=== PATIENT | female | born 1935 | race Caucasian/White ===

== ENCOUNTER 2019-03-02 12:17 | Inpatient (IN) | payer OTHER, BC ==
[~2019-03-02] VITALS: Ht 165.1 cm; Wt 79.4 kg
[2019-03-02 12:34] VITALS: Ht 165.1 cm; Wt 79.4 kg
--- NOTE | 2019-03-02 12:39 | NUR ---
PT TO ED FOR EVAL OF FALL WITH LAC AND HEMATOMA TO L SIDE OF HEAD. PT HAD UNWITNESSED FALL. PT FOUND ON GROUND BY FAMILY NO KO. PT DID NOT REMEMBER EVENTS LEADING UP TO FALL. PT CURRENTLY AWAKE ALERT AND ORIENTED. FOLLOWING ALL COMMANDS. + DRESSING IN PLACE TO HEAD. PT DENIES NECK OR BACK PAIN. STATES PAIN TO BILAT WRIST L>R. NO SWELLING OR DEFORMITY NOTED. PAIN WITH MOVEMENT. PT TO ROOM 3. CHANGED INTO GOWN. PLACED ON CM. EMT AT BEDSIDE TO CLEAN WOUND.
--- NOTE | 2019-03-02 13:07 | NUR ---
FAMILY MEMBER AT BEDSIDE.
[2019-03-02 13:17] LABS: BASOPHIL % 0.2 % (0-2); PLATELET COUNT 188 x10^3mcL (130-400); RED CELL DISTRIBUTION WIDTH 13.6 % (11.5-14.5)
--- NOTE | 2019-03-02 13:26 | NUR ---
PT WENT AND RETURNED FROM CT SCANNER. REMAINS AWAKE AND ALERT. BREATING EVEN UNLABORED. NO DISTRESS
[2019-03-02 13:36] LABS: ALBUMIN 3.5 g/dL (3.4-5.0); ALKALINE PHOSPHATASE 71 U/L (46-116); ALT/SGPT 22 U/L (14-59); AST/SGOT 13 U/L (15-37); BILIRUBIN TOTAL 0.51 mg/dL (0.20-1.00); CALCIUM 9.9 mg/dL (8.5-10.1); CARBON DIOXIDE 27.4 mmol/L (21-32); CHLORIDE SERUM 100 mmol/L (98-107); GLUCOSE SERUM 163 mg/dL (74-106); POTASSIUM SERUM 4.1 mmol/L (3.5-5.1); SODIUM SERUM 137 mmol/L (136-145); TOTAL PROTEIN, SERUM 7.3 g/dL (6.4-8.2)
--- NOTE | 2019-03-02 14:31 | NUR ---
XRAY AT BEDSIDE.
--- NOTE | 2019-03-02 15:05 | NUR ---
[facility] AT BEDSIDE FOR SUTURES WITH RYAN STAFFORD ASSISTING.
[2019-03-02 16:37] LABS: MAGNESIUM 2.1 mg/dL (1.8-2.4); PHOSPHOROUS 3.3 mg/dL (2.5-4.9)
--- NOTE | 2019-03-02 16:44 | NUR ---
REPORT GIVEN TO SID ANDRADE.
--- NOTE | 2019-03-02 16:55 | NUR ---
RECEIVED PT VIA GUERNEY FROM E/D, ACCOMPANIED BY RN AND TRANSPORTER. PT A/A/O X 4, CALM, COOPERATIVE, WEARS GLASSES (W/ PT), DENIES H/A, DIZZINESS, OR NAUSEA AT THIS TIME. PT W/ GENERALIZED WEAKNESS, ABLE TO AMBULATE W/ SLOW, UNSTEADY GAIT, NEEDS ASSISTANCE, USES WALKER AT HOME, FALL RISK PROTOCOL IN PLACE. ON TELE # 17, SR W/ BBB & ELEVATED ST SEGMENT, HR 91, DENIES CHEST PAIN OR DISCOMFORT AT THIS TIME. NO ACUTE RESPIRATORY DISTRESS NOTED. INCONTINENT OF BLADDER. CAME IN FOR UNWITNESSED FALL W/ LEFT OCCIPITAL HEMATOMA/LACERATION APPROX 0.7CM, COVERED W/ NON-ADHERENT DRESSING AND COBAND (PHOTO TO BE TAKEN LATER AFTER PT RESTS). C/O BUE INTERMITTENT ACHING PAIN 4/10, EXACERBATED BY MOVEMENT, RELIEVED BY RESTING. IV SITE LAC 18G, CDI. ORIENTED PT TO ROOM, BED CONTROLS, CALL LIGHT SYSTEM. SIDE RAILS UP X 2, BED IN LOW POSITION. WILL ENDORSE TO RAYMOND VALENCIA.
[2019-03-02 17:28] VITALS: BP 153/72
--- NOTE | 2019-03-02 17:55 | NUR ---
[employer] STORE CLERK AT BEDSIDE.
[2019-03-02] MEDS ORDERED: FARXIGA10 MG PO (18:04)
[2019-03-02] MEDS ORDERED: METFORMIN PO (18:08)
[2019-03-02] MEDS ORDERED: BASAGLAR K100 UNIT/1 SQ (18:10)
[2019-03-02] MEDS ORDERED: AMLODIPINE-VALS1 TAB PO (18:12)
[2019-03-02] MEDS ORDERED: MOBIC15 MG PO (18:13)
[2019-03-02] MEDS ORDERED: ZOLOFT100 MG PO (18:14)
[2019-03-02] MEDS ORDERED: SINGULAIR10 MG PO (18:15)
[2019-03-02] MEDS ORDERED: TRAVATAN Z5 ML OU (18:16)
[2019-03-02] MEDS ORDERED: NORCO1 TA2 PO (18:18)
--- NOTE | 2019-03-02 18:21 | NUR ---
PATIENT C/O PAIN 03/23 TO [facility], MEDICATED PATEINT WITH NORCO PER PROTOCOL(SEE EMAR). REPOSITIONED FOR COMFORT. PATIENT IS STABLE, NO ACUTE CHANGES NOTED THROUGH OUT SHIFT. CALL LIGHT WITHN REACH, BED IN LOW POSITION. WILL ENDORSE REPORT TO NIGHT RN.
[2019-03-02] MEDS ORDERED: SPIRIVA18 MC1 IH (18:28)
[2019-03-02] MEDS ORDERED: ADV250/50 IH (18:29)
[2019-03-02] MEDS ORDERED: PROVENTIL0.09 MG/A1 IH (18:31)
[2019-03-02] MEDS ORDERED: NASACORT A55 MCG/Ac1 (18:33)
[2019-03-02] MEDS ORDERED: MULTI-VITAMINS1 TAB PO (18:34)
[2019-03-02] MEDS ORDERED: EPZICOM1 TAB (18:39)
[2019-03-02] MEDS ORDERED: VITAMIN D33000 UNIT PO (18:39)
[2019-03-02] MEDS ORDERED: CRANBERRY250 MG PO (18:40)
[2019-03-02] MEDS ORDERED: FISH OIL 1,2001 EAC3 PO (18:41)
[2019-03-02] MEDS ORDERED: COQ-10100 MG PO (18:42)
[2019-03-02] MEDS ORDERED: [UNRECOGNIZED DRUG - OTHER] PO (18:46)
--- NOTE | 2019-03-02 19:20 | NUR ---
RECEIVED PT IN BED RESTING QUIETLY. SHE IS ALERT,ORIENTED X4. SHE DENIED HAVING DIZZINESS AND HEADACHE. NO FACIAL DROOP NOTED. SHE DENIES PAIN AT THIS TIME AFTER SHE WAS MEDICATED FOR PAIN BY AM NURSE. W/ LACERATION TO THE BACK OF HER HEAD W/ SUTURES NOTED. IVF NS INFUSING AT 125 CC/HR VIA LTAC. CALL LIGHT W/IN REACH.
--- NOTE | 2019-03-02 23:54 | NUR ---
PT C/O PAIN ON HER WRISTS AND SHOULDERS 03/23. NORCO 7.5/325 MG PO GIVEN. PT ALSO ASSISTED TO THE BSC AND VOIDED W/O DIFFICULTY. HELPED HER BACK TO BED AND KEPT WARM AND COMFORTABLE.
[2019-03-03 00:30] VITALS: BP 153/72
--- NOTE | 2019-03-03 02:30 | NUR ---
ASSISTED PT TO BSC. PT REMAINS ALERT AND ORIENTED X4 W/ CLEAR SPEECH. SHE DENIES FEELING DIZZY WHEN GETTING UP. HELPED HER BACK TO BED AND KEPT COMFORTABLE.
--- NOTE | 2019-03-03 05:35 | NUR ---
PT SLEPT AT [facility]. SHE REMAINS ALERT AND ORIENTED X4. SHE HAD NO EPISODE OF DIZZINESS OR LIGHTHEADEDNESS. W/ MILD GENERALIZED WEAKNESS NOTED. PT USING BEDSIDE COMMODE. SHE VOIDS W/O DIFFICULTY W/ PERIODS ON INCONTINENCE. NO BM THIS SHIFT. IVF NS INFUSING WELL AT 120 CC/HR VIA LTAC. ALL NEEDS ATTENDED TO SAFETY MEASURES MAINTAINED.
[2019-03-03 06:04] VITALS: BP 150/80
[2019-03-03 06:50] LABS: BASOPHIL % 0.4 % (0-2); PLATELET COUNT 171 x10^3mcL (130-400); RED CELL DISTRIBUTION WIDTH 13.7 % (11.5-14.5)
[2019-03-03 06:57] LABS: CARBON DIOXIDE 25.7 mmol/L (21-32); CHLORIDE SERUM 100 mmol/L (98-107); GLUCOSE SERUM 103 mg/dL (74-106); MAGNESIUM 1.9 mg/dL (1.8-2.4); PHOSPHOROUS 3.4 mg/dL (2.5-4.9); POTASSIUM SERUM 3.5 mmol/L (3.5-5.1); SODIUM SERUM 128 mmol/L (136-145)
--- NOTE | 2019-03-03 07:15 | NUR ---
RECEIVED PT. IN BED A/A/O X3. NO SOB, NO N/V NOTED. PT. DENIES ANY PAIN AT THIS TIME. PT. DENIES FEELING OF DIZZINESS. NS RUNNING AT 120 CC/HR VIA IV SITE AT L AC. SCD TO BLE MAINTAINED. BED IN LOW POS., CALL LIGHT WITHIN REACH. SIDE RAILS UP X3.
[2019-03-03 07:23] LABS: UA SPECIFIC GRAVITY <=1.005 (1.005-1.035); microscopic required? YES; urine erythrocyte NEGATIVE (NEGATIVE)
[2019-03-03 08:41] LABS: AMPHETAMINE QUAL UR NONE DETECTED (See below)
[2019-03-03 09:25] VITALS: BP 140/80
--- NOTE | 2019-03-03 13:47 | NUR ---
D/C HOME INSTRUCTIONS GIVEN TO PT. AND PT.'S DAUGHTER (MS. GAMINO) WHO BOTH VERBALIZED UNDERSTANDING OF INSTRUCTIONS. IV H/L TO L AC REMOVED. TELE. MONITOR # [id number] REMOVED AND RETURNED TO TELE. MONITOR STATION.
--- NOTE | 2019-03-03 14:00 | NUR ---
NEURO CHECK PERFORMED. NO NEURO. ABNORMALITY NOTED.
--- NOTE | 2019-03-03 14:13 | NUR ---
PT. IS BEING DISCHARGED IN STABLE CONDITION VIA WHEELCHAIR. ALL BELONGINGS SENT HOME WITH PT. UPON DISCHARGE.
== END 2019-03-03 14:11 | disposition home or self-care (01) | DRG 604 ==
LOC: ED 12:17 → DU 15:58
PROVIDERS: Emergency Medicine; ADMIT Internal Medicine
PROC: 0HQ0XZZ Repair Scalp Skin, External Approach (ICD-10-PCS; principal; 2019-03-02)
DX: S01.01XA Laceration without foreign body of scalp, initial encounter (principal); N17.0 Acute kidney failure with tubular necrosis; G90.8 Other disorders of autonomic nervous system; S46.912A Strain of unspecified muscle, fascia and tendon at shoulder and upper arm level, left arm, initial encounter; E86.0 Dehydration; I67.2 Cerebral atherosclerosis; F01.50 Vascular dementia, unspecified severity, without behavioral disturbance, psychotic disturbance, mood disturbance, and anxiety; E11.65 Type 2 diabetes mellitus with hyperglycemia; I10 Essential (primary) hypertension; J45.909 Unspecified asthma, uncomplicated; Z79.84 Long term (current) use of oral hypoglycemic drugs; Z96.652 Presence of left artificial knee joint; W18.39XA Other fall on same level, initial encounter; Y92.013 Bedroom of single-family (private) house as the place of occurrence of the external cause
CPT/HCPCS: 82962; 83880; J2001; J7030; J7644; J8597; Q0092